=== PATIENT | female | born 1990 | race Hispanic/Latino ===

== ENCOUNTER 2017-05-08 01:38 | Emergency (ER) | payer SELFPAY ==
[~2017-05-08] VITALS: Ht 154.9 cm; Wt 60.3 kg
[2017-05-08] MEDS ORDERED: KETOROLAC TROMETHAMINE 30 MG/ML VIAL IV STA (02:00)
[2017-05-08 02:23] LABS: BASOPHILS % 0.3 % (0.0-1.0); EOSINOPHILS # (AUTO) 0.1 (0.0-0.4); EOSINOPHILS % 2.2 % (0.0-6.0); HEMATOCRIT 35.6 % (34.2-44.1); HEMOGLOBIN 12.1 g/dL (12.0-16.0); LYMPHOCYTES # (AUTO) 2.1 (1.0-3.2); LYMPHOCYTES % 35.2 % (18.0-39.1); MEAN CORPUSCULAR HEMOGLOBIN 29.9 pg (28-32); MEAN CORPUSCULAR VOLUME 87.9 fL (81-99); MONOCYTES # (AUTO) 0.3 (0.2-0.8); MONOCYTES % 5.5 % (4.4-11.3); NEUTROPHILS # (AUTO) 3.4 (2.1-6.9); NEUTROPHILS % 56.3 % (38.7-80.0); PLATELET COUNT 305 x10e3/uL (140-360); RED BLOOD COUNT 4.05 x10e6/uL (3.6-5.1); RED CELL DISTRIBUTION WIDTH 12.5 % (11.7-14.4)
--- NOTE | 2017-05-08 02:34 | Diagnostic Imaging Report ---
CHEST 2 VIEWS, Technique: CHEST 2 VIEWS Comparison: None Clinical history: \S\chest pain \[id number] \[id number] \S\Y DISCUSSION: Normal appearance of the heart, mediastinum, lungs and pleural spaces. IMPRESSION: No acute abnormality Signed by: Dr Vibha Botello MD on 05/08/2017 2:30 AM
[2017-05-08 03:02] LABS: ALANINE AMINOTRANSFERASE 48 IU/L (0-55); ALBUMIN 3.7 g/dL (3.5-5.0); ALBUMIN/GLOBULIN RATIO 1.2 (0.8-2.0); ALKALINE PHOSPHATASE 81 IU/L (40-150); ANION GAP 14.1 mmol/L (8-16); BLOOD UREA NITROGEN 12 mg/dL (7-26); BUN/CREATININE RATIO 12 (6-25); CALCIUM 9.4 mg/dL (8.4-10.2); CARBON DIOXIDE 26 mmol/L (22-29); CHLORIDE 103 mmol/L (98-107); CREATINE KINASE 90 IU/L (29-168); EST GLOMERULAR FILTRATION RATE > 60 ML/MIN (60-); GLUCOSE 101 mg/dL (74-118); POTASSIUM 3.1 mmol/L (3.5-5.1); SODIUM 140 mmol/L (136-145)
--- NOTE | 2017-05-08 04:46 | Diagnostic Imaging Report ---
EXAM: CT CHEST W DATE: 05/08/2017 3:54 AM INDICATION: Chest tightness COMPARISON: None TECHNIQUE: Multidetector CT scanning of the chest was performed. Coronal and sagittal multiplanar reformations were obtained. IV Contrast: 100 ml Isovue 370/300 FINDINGS: LUNGS AND PLEURA: No consolidations or edema. No effusions or pneumothorax. HEART, MEDIASTINUM, VESSELS: No evidence of acute pulmonary embolism. Main pulmonary artery is normal in size. Normal heart size. No pericardial effusion. No adenopathy. UPPER ABDOMEN: Cholelithiasis. Otherwise unremarkable. MUSCULOSKELETAL: No acute findings. IMPRESSION: No acute pulmonary embolism or other acute abnormality. Signed by: Dr Vibha Botello MD on 05/08/2017 4:42 AM
[2017-05-08 04:58] VITALS: BP 128/81
[2017-05-08] MEDS ORDERED: SODIUM CHLORIDE 0.9% 50ML 50 ML ONE (06:52)
[2017-05-08] MEDS ORDERED: IOPAMIDOL 370 MG/ML 200 ML INFUS..BTL INJ ONE (06:53)
== END 2017-05-08 05:06 | disposition home or self-care (01) ==
LOC: ER 01:38
DX: R09.1 Pleurisy (principal)
CPT/HCPCS: 36415; 71046; 71260; 80053; 82550; 82553; 84484; 85025; 85379; 93005; 96374; 99284; J1885; Q9967